=== PATIENT | male | born 1980 | race Caucasian/White ===

== ENCOUNTER → 2018-03-11 | Outpatient (CLI) | payer MEDICAID ==
--- NOTE | 2018-03-11 15:05 | RADIOLOGY REPORT (SQ) ---
EXAM DESCRIPTION: CHEST PA/LATERAL COMPLETED DATE/TIME: 03/11/2018 2:49 pm REASON FOR STUDY: PRE-OP COMPARISON: 07/26/2015 EXAM PARAMETERS: NUMBER OF VIEWS: two views TECHNIQUE: Digital Frontal and Lateral radiographic views of the chest acquired. RADIATION DOSE: NA LIMITATIONS: none FINDINGS: LUNGS AND PLEURA: No opacities, masses or pneumothorax. No pleural effusion. MEDIASTINUM AND HILAR STRUCTURES: No masses or contour abnormalities. HEART AND VASCULAR STRUCTURES: Heart normal size. No evidence for failure. BONES: No acute findings. HARDWARE: None in the chest. OTHER: No other significant finding. IMPRESSION: NO SIGNIFICANT RADIOGRAPHIC FINDING IN THE CHEST. TECHNICAL DOCUMENTATION: JOB ID: [id number] [employer]- All Rights Reserved Reading location - IP/workstation name: [email or web address]
[2018-03-11 15:29] LABS: APPEARANCE,URINE SLIGHTLY-CLOUDY; BILIRUBIN,URINE NEGATIVE (NEGATIVE); COLOR,URINE YELLOW; GLUCOSE, URINE NEGATIVE (NEGATIVE); KETONES,URINE NEGATIVE (NEGATIVE); LEUKOCYTE ESTERASE,URINE NEGATIVE (NEGATIVE); NITRITE,URINE NEGATIVE (NEGATIVE); PROTEIN,URINE NEGATIVE (NEGATIVE); URINE SPECIFIC GRAVITY 1.015; UROBILINOGEN,URINE NEGATIVE mg/dL (<2.0)
[2018-03-11 15:34] LABS: ABSOLUTE BASOPHILS # (AUTO) 0.1 10^3/uL (0.0-0.2); ABSOLUTE EOSINOPHILS # (AUTO) 0.5 10^3/uL (0.0-0.6); ABSOLUTE LYMPHOCYTES (AUTO) 3.1 10^3/uL (0.5-4.7); ABSOLUTE MONOCYTES (AUTO) 0.5 10^3/uL (0.1-1.4); ABSOLUTE NEUT (AUTO) 2.8 10^3/uL (1.7-8.2); BASOPHILS % (AUTO) 1.5 % (0-2); EOSINOPHILS % (AUTO) 6.6 % (0-6); HEMATOCRIT 45.7 % (37.9-51.0); HEMOGLOBIN 16.3 g/dL (13.5-17.0); LYMPHOCYTES % (AUTO) 44.5 % (13-45); MEAN CORPUSCULAR HEMOGLOBIN 32.9 pg (27.0-33.4); MEAN CORPUSCULAR HGB CONC 35.7 g/dL (32.0-36.0); MEAN CORPUSCULAR VOLUME 92 fl (80-97); MONOCYTES % (AUTO) 7.6 % (3-13); PLATELET COUNT 200 10^3/uL (150-450); RED BLOOD COUNT 4.96 10^6/uL (4.35-5.55); RED CELL DISTRIBUTION WIDTH 14.2 % (11.5-14.0); SEGMENTED NEUTROPHILS % (AUTO) 39.8 % (42-78); TOTAL CELLS COUNTED % (AUTO) 100 %
[2018-03-11 15:44] LABS: ANION GAP 12 (5-19); BLOOD UREA NITROGEN 15 mg/dL (7-20); CALCIUM 9.5 mg/dL (8.4-10.2); CARBON DIOXIDE 33 mmol/L (22-30); CHLORIDE 99 mmol/L (98-107); GLUCOSE 73 mg/dL (75-110); POTASSIUM 4.6 mmol/L (3.6-5.0); SODIUM 143.9 mmol/L (137-145)
--- NOTE | 2018-03-11 18:11 | EKG REPORT ---
SEVERITY:- NORMAL ECG - SINUS RHYTHM : Confirmed by: Raúl Wolf MD 11-Mar-2018 18:10:30
== END ==
LOC: OD 14:20
PROVIDERS: ATTEND Orthopaedic Surgery
DX: Z01.810 Encounter for preprocedural cardiovascular examination (principal); Z01.812 Encounter for preprocedural laboratory examination; Z01.818 Encounter for other preprocedural examination; Z79.899 Other long term (current) drug therapy
CPT/HCPCS: 36415; 71046; 80048; 81001; 85025; 93005; 93010

== ENCOUNTER 2018-03-30 06:32 | Inpatient (IN) | payer MEDICARE, MEDICAID ==
[~2018-03-30 06:32] MED LIST: BUPIVACAINE INJ/PF LIPOSOME/PF 266 MG/20 ML SDV IJ PRN; CEFAZOLIN INJ 1 GM VIAL IV PRN; IBUPROFEN 800 MG in DEXTROSE 5%-WATER 250 ML IV PRN; LACTATED RINGERS 1000 ML IV PRN; LANSOPRAZOLE 15 MG TAB.RAP.DR PO PRN; LIDOCAINE 0.5% INJ-PF (5 MG/ML) 50 ML SDV SUBCUT PRN; OXYCODONE HCL SR 10 MG TABLET PO PRN; VANCOMYCIN HCL 1,000 MG in DEXTROSE 5%-WATER 250 ML IV PRN
[2018-03-30] MEDS ORDERED: LANSOPRAZOLE 15 MG TAB.RAP.DR ONE (07:00)
[2018-03-30] MEDS ORDERED: FENTANYL CITRATE INJ/PF 100 MCG/2 ML AMPUL ONE (07:46)
[2018-03-30] MEDS ORDERED: TRANEXAMIC ACID INJ/PF 1,000 MG/10 ML SDV IV ONE ×3 (07:46→12:00)
[2018-03-30] MEDS ORDERED: MIDAZOLAM 2 MG/2 ML INJ ONE (07:46)
[2018-03-30] MEDS ORDERED: EPHEDRINE SULFATE INJ 50 MG/1 ML AMPULE ONE (07:46)
[2018-03-30] MEDS ORDERED: ONDANSETRON HCL INJ/PF 4 MG/2 ML SDV ONE (07:46)
[2018-03-30] MEDS ORDERED: PROPOFOL INJ 200 MG/20 ML VIAL IV ONE (07:47)
[2018-03-30] MEDS ORDERED: HYDROMORPHONE HCL INJ/PF 2 MG/ML AMPULE ONE (07:47)
[2018-03-30] MEDS ORDERED: OXYCODONE HCL SR 10 MG TABLET PO ONE (07:56)
[2018-03-30] MEDS ORDERED: CEFAZOLIN INJ 1 GM VIAL ONE (07:59)
[2018-03-30] MEDS ORDERED: BUPIVACAINE HCL/DEX-WATER/PF 15 MG/2 ML AMPULE ONE (08:03)
[2018-03-30] MEDS ORDERED: THROMBIN (BOVINE) 5000 UNIT EPITAXIS KIT ONE (08:48)
[2018-03-30] MEDS ORDERED: BUPIVACAINE HCL 0.25% /EPINEPHRINE INJ/PF 30 ML SDV ONE (08:48)
[2018-03-30] MEDS ORDERED: ONDANSETRON HCL INJ/PF 4 MG/2 ML SDV IV PRN ×2 (09:12→09:51)
[2018-03-30] MEDS ORDERED: FENTANYL CITRATE INJ/PF 100 MCG/2 ML AMPUL IV PRN ×3 (09:12)
[2018-03-30] MEDS ORDERED: DIPHENHYDRAMINE HCL 50 MG/ML VIAL IV PRN ×2 (09:12→09:51)
[2018-03-30] MEDS ORDERED: MEPERIDINE HCL/PF INJ 25 MG/1 ML DISP.SYRIN IV PRN (09:12)
[2018-03-30] MEDS ORDERED: MAG HYDROX/AL HYDROX/SIMETH SUSP 30 ML UDCUP PO PRN (09:51)
[2018-03-30] MEDS ORDERED: ONDANSETRON 4 MG TAB.RAPDIS PO PRN (09:51)
[2018-03-30] MEDS ORDERED: ACETAMINOPHEN 325 MG TABLET PO PRN (09:51)
[2018-03-30] MEDS ORDERED: MORPHINE SULFATE 10 MG/ML INJ IV PRN ×4 (09:51)
[2018-03-30] MEDS ORDERED: ZOLPIDEM TARTRATE 5 MG TABLET PO PRN (09:51)
[2018-03-30] MEDS ORDERED: RINGERS SOLUTION,LACTATED 1,000 ML IV PRN (09:51)
--- NOTE | 2018-03-30 09:51 | Operative Report ---
Operative Report DATE OF SURGERY: 03/30/18 PREOPERATIVE DIAGNOSIS: Left hip avascular necrosis OPERATION: Left hip arthroplasty SURGEON: RIDDHI WEN ANESTHESIA: Spinal TISSUE REMOVED OR ALTERED: Femoral head to pathology ESTIMATED BLOOD LOSS: 150 PROCEDURE: Implants used: Femur: Stratton Accolade 2 size 8 stem Acetabular shell: 60 mm hemispherical shell Liner: 36 mm flat cross-link polyethylene liner Head: 36 mm chrome cobalt head -5 neck The patient is placed in a right lateral decubitus position on the operating table. The left lower extremity and hindquarter is prepped and draped in a sterile fashion. A curvilinear incision was made over the greater trochanter a posterior approach the hip was taken. The femoral head is dislocated and the femoral neck transected using an oscillating saw. Attention was next turned to the acetabulum. Soft tissues cleared off the acetabulum using electrocautery. The acetabulum was then prepared using a series of hemispherical reamers until a 60 millimeters reamer is seated. Subsequently a 60 millimeters Jossy titanium hemispherical shell is impacted into position and secured with one screw. A standard flat 36 millimeters cross- link liner is impacted into the shell. Attention was next turned to the femur. Access is gained to the femoral canal using a box osteotome to the piriformis fossa. The femur is then prepared using a series of broaches until a number 8 broach is seated. A trial reduction was now performed using a 36 millimeters head with -5 neck. Preoperative leg length was recreated and is excellent anterior posterior stability. A decision was made to proceed with the above construct. All trial implants were removed. The wound is irrigated with pulsed lavage. A number 8 stem is impacted into the femoral canal. A trial reduction was again performed with a 36 mm head and a -5 neck. Findings as previously. The hip was dislocated one last time and the final chrome-cobalt head is impacted onto the trunnion. The hip was reduced. Wound is copiously irrigated with pulsed lavage. Sent closed in layers using interrupted Vicryl followed by suly. A sterile dressing is applied and the patient's returned to recovery room in satisfactory patient.
[2018-03-30] MEDS ORDERED: PRENATAL VITAMIN W DHA CAPSULE PO SCH (10:00)
--- NOTE | 2018-03-30 11:07 | RADIOLOGY REPORT (SQ) ---
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 NUMBER OF VIEWS: One view TECHNIQUE: Digital radiographic images of the pelvis post-procedure LIMITATIONS: None. FINDINGS: BONES: No worrisome or unexpected findings post-procedure. DEVICE: Left total hip replacement, acetabular component anchored with a single screw. Overlying ski n suly. SOFT TISSUES: No worrisome findings. Expected postoperative soft tissue changes. IMPRESSION: SATISFACTORY POSTOPERATIVE PELVIS. TECHNICAL DOCUMENTATION: JOB ID: [id number] [facility]- All Rights Reserved Reading location - IP/workstation name: [email or web address]
[2018-03-30] MEDS ORDERED: RINGERS SOLUTION,LACTATED 500 ML IV ONE ×2 (12:30→14:30)
[2018-03-30] MEDS: SENNOSIDES/DOCUSATE 8.6-50 MG 1 EACH TABLET PO SCH ×2 (12:42→17:58)
[2018-03-30] MEDS: PREGABALIN 75 MG CAPSULE PO SCH ×2 (12:42→17:58)
[2018-03-30] MEDS: OXYCODONE HCL SR 10 MG TABLET PO SCH ×2 (12:44→21:19)
[2018-03-30] MEDS: OXYCODONE HCL IR 5 MG TABLET PO PRN (17:58)
[2018-03-30] MEDS: IBUPROFEN 800 MG in DEXTROSE 5%-WATER 250 ML IV SCH (17:59)
[2018-03-30] MEDS ORDERED: VANCOMYCIN HCL 1,000 MG in DEXTROSE 5%-WATER 250 ML IV ONE (22:00)
[2018-03-31] MEDS: OXYCODONE HCL IR 5 MG TABLET PO PRN ×2 (00:02→09:24)
[2018-03-31] MEDS: IBUPROFEN 800 MG in DEXTROSE 5%-WATER 250 ML IV SCH (02:31)
[2018-03-31] MEDS ORDERED: LANSOPRAZOLE 30 MG TAB.RAP.DR PO SCH (06:00)
--- NOTE | 2018-03-31 07:12 | PDOC DISCHARGE SUMMARY ---
General - Admit/Disc Date/PCP Admission Date/Primary Care Provider: 03/30/18 06:32 Discharge Date: 03/31/18 - Discharge Diagnosis (1) Avascular necrosis of bone of left hip Is this a current diagnosis for this admission?: Yes - Additional Information Resuscitation Status: Full Code Home Medications: Buprenorphine HCl/Naloxone HCl [Suboxone 8 mg-2 mg Sl Film] 8 mg PO BID History of Present Illness History of Present Illness: DENNIS COLE is a 37 year old male Patient is a 37-year-old white male with left hip avascular necrosis who is status post a cord decompression in 2016 and now with progressive pain and functional disabilities of the leg is admitted for elective left hip arthroplasty. Hospital Course Hospital Course: Patient is admitted through the operating where he undergoes unconjugated left hip arthroplasty. Is returned to floor in satisfactory condition. He makes excellent progress with physical therapy ambulating and weightbearing as tolerated basis. Dressing remains clean dry and intact. Distal neurovascular examination is intact. Leg lengths are equal. Physical Exam Vital Signs: Temp Pulse Resp BP Pulse Ox 36.8 C 79 18 96/54 L 98 03/30/18 20:30 03/30/18 20:30 03/30/18 20:30 03/30/18 20:30 03/30/18 20:30 Intake & Output 03/30/18 03/31/18 04/01/18 06:59 06:59 06:59 Intake Total 5700 Output Total 2650 Balance 3050 General appearance: PRESENT: no acute distress Respiratory exam: PRESENT: unlabored Cardiovascular exam: PRESENT: RRR Pulses: PRESENT: +1 pedal pulses bilateral Vascular exam: PRESENT: normal capillary refill GI/Abdominal exam: PRESENT: soft Rectal exam: PRESENT: deferred Extremities exam: PRESENT: other - Left hip dressing clean dry and intact. Leg lengths are equal. Distal neurovascular examination is intact. Neurological exam: PRESENT: alert, awake, oriented to person, oriented to place , oriented to time, oriented to situation. ABSENT: motor sensory deficit Psychiatric exam: PRESENT: appropriate affect, normal mood. ABSENT: homicidal ideation, suicidal ideation Skin exam: PRESENT: dry, intact, warm. ABSENT: cyanosis, rash Results Laboratory Results: 03/30/18 07:31 Blood Type O POSITIVE Antibody Screen NEGATIVE Impressions: Pelvis X-Ray 03/30/18 09:52 IMPRESSION: SATISFACTORY POSTOPERATIVE PELVIS. Status: Imported from [facility] - * PATIENT BEING DISCHARGED WITH ANY OF THE FOLLOWING DIAGNOSIS: No VTE patient discharged on overlapping Therapy?: Yes Plan Discharge Plan: Patient be discharged home with home health services and DME. Follow-up with Dr. Banks and [facility] for surgery in 2 weeks for staple removal.
[2018-03-31 07:42] LABS: HEMATOCRIT 40.3 % (37.9-51.0); HEMOGLOBIN 13.8 g/dL (13.5-17.0); MEAN CORPUSCULAR HEMOGLOBIN 31.6 pg (27.0-33.4); MEAN CORPUSCULAR HGB CONC 34.2 g/dL (32.0-36.0); MEAN CORPUSCULAR VOLUME 93 fl (80-97); PLATELET COUNT 191 10^3/uL (150-450); RED BLOOD COUNT 4.36 10^6/uL (4.35-5.55); RED CELL DISTRIBUTION WIDTH 13.6 % (11.5-14.0)
[2018-03-31 07:56] LABS: ANION GAP 10 (5-19); BLOOD UREA NITROGEN 13 mg/dL (7-20); CALCIUM 8.8 mg/dL (8.4-10.2); CARBON DIOXIDE 29 mmol/L (22-30); CHLORIDE 102 mmol/L (98-107); GLUCOSE 95 mg/dL (75-110); POTASSIUM 4.6 mmol/L (3.6-5.0); SODIUM 140.7 mmol/L (137-145)
[2018-03-31 09:39] VITALS: BP 96/54
[2018-03-31] MEDS ORDERED: ASPIRIN 81 MG TABLET, ENT COATED PO SCH (10:00)
--- NOTE | 2018-03-31 10:13 | CONSULTATION REPORT E ---
Consultation Report NAME: DENNIS COLE : 1980 AGE: 37Y DATE: 03/30/2018 430 A TO: RONAN GONZALEZ PA-C FROM: Requesting Physician CHIEF COMPLAINT: Left hip pain status post left hip arthroplasty today due to avascular necrosis. HISTORY OF PRESENT ILLNESS: The patient is a 37-year-old male with past medical history of GERD, multiple joint surgeries, anxiety, depression, opioid dependence/abuse, who underwent a scheduled left hip arthroplasty earlier today due to avascular necrosis. He is actually doing very well. He is able to participate in physical therapy and walked 250 feet up and down the hallway earlier today. He states his current postoperative pain medications are effective and he denies side effects. He does have a history of opioid dependence/abuse, specifically Opana. He states he was prescribed pain medications for a number of years after having multiple orthopedic surgeries on his knees, hips, and shoulders, and developed a dependence. He began buying them off the street and misusing them. He has been stable on Suboxone therapy for about [address] Lenny Martinez, who was aware the patient was having surgery and recommended that he stop Suboxone prior to his surgery, which he did, and will resume it when he is able to stop his postop pain medications. He is currently receiving OxyContin q.12 hours scheduled and morphine IV as needed, which is helpful. He is hopeful that he can go home soon and denies further concerns at this time. MEDICAL HISTORY: 1. Gastroesophageal reflux disease. 2. Anxiety/depression. 3. Opioid dependence. PAST SURGICAL HISTORY: 1. Three knee surgeries in 2004, 2005, and 2011. 2. Shoulder surgery in 2014. 3. Left hip surgery in 2013. ALLERGIES: No known drug allergies. MEDICATIONS: As per chart. Only home medication is Suboxone, which he takes 8 mg twice a day. SOCIAL HISTORY: He denies alcohol use. No illicit drug use. He has a fiancee. He states he will be staying with his parents upon his discharge. REVIEW OF SYSTEMS: CONSTITUTIONAL: He denies fevers or chills. Loss of appetite. SKIN: Denies rashes, bruising, itching, diaphoresis. HEENT: Denies difficulty hearing. CVS: Denies chest pain or heart palpitations. RESPIRATORY: Denies cough, sputum production. GASTROINTESTINAL: Denies nausea, vomiting, diarrhea, abdominal pain, or constipation. URINARY: Denies dysuria or hematuria. MUSCULOSKELETAL: Positive for left hip pain, worse with movement. NEUROLOGIC: Denies weakness, bowel or bladder incontinence. No seizures, tremors, or loss of consciousness. ENDOCRINE: Denies any recent weight changes. Review of systems otherwise negative. PHYSICAL EXAMINATION: GENERAL: The patient is a well-developed, well-nourished 37-year-old male who appears his stated age and is awake, alert, and oriented to person, place, and time. He does not appear to be in acute distress. When I arrived, he is sitting upright in his bed. He has some pain and grimacing with movement. His father, mother, and fiancee are present in the room. VITAL SIGNS: Stable. SKIN: Warm and dry, no rashes. HEENT: Normocephalic/atraumatic. Extraocular muscles are intact. NECK: Supple, nontender. CVS: Radial pulses 2+ bilaterally. No edema. LUNGS: Respirations unlabored. ABDOMEN: Soft, nontender, nondistended. EXTREMITIES: Able to move all extremities. NEUROLOGIC: able to pump feet, no clonus. MUSCULOSKELETAL: He does have a bandage in place over the left hip. PSYCH: The patient is alert and oriented to person, place, and time. IMPRESSION AND PLAN: Postop pain, status post left hip arthroplasty, due to avascular necrosis. The patient is actually doing well since he had surgery earlier today. His current medication regimen of OxyContin 20 q.12 and morphine IV as needed is effective. He has not yet tried the Oxycodone IR for breakthrough pain. Recommend he try this overnight so hopefully he can be discharged home on oral medications. Discussed that it is ok to use the IV pain meds overnight as needed, as we do want him to rest, but tomorrow we would start transitioning away from them as much as possible to oral meds only. Discussed risks of opioids, given his history of opioid dependence and Suboxone use. Our goal would be to use opioids for as short a time as possible. Continue physical therapy and continue followup with Orthopedics. No other recommendations at this time. Patient discussed with Dr. Vernon Ledesma. DICTATING PHYSICIAN: RONAN GONZALEZ PA-C [id number] PHY#: [id number] ID: [id number] JOB#: [id number] ACCT: [id number] cc:RONAN GONZALEZ PA-C
== END 2018-03-31 11:30 | disposition home health service (06) | DRG 470 ==
LOC: INOR 06:32 → 4S 12:17
PROVIDERS: ADMIT Orthopaedic Surgery; ATTEND Orthopaedic Surgery
PROC: 0SRB02A Replacement of Left Hip Joint with Metal on Polyethylene Synthetic Substitute, Uncemented, Open Approach (ICD-10-PCS; principal; 2018-03-30 08:45)
DX: M87.052 Idiopathic aseptic necrosis of left femur (principal); F11.20 Opioid dependence, uncomplicated; K21.9 Gastro-esophageal reflux disease without esophagitis; F41.9 Anxiety disorder, unspecified; F32.9 Major depressive disorder, single episode, unspecified; F17.210 Nicotine dependence, cigarettes, uncomplicated; M54.5 Low back pain; Z79.899 Other long term (current) drug therapy
CPT/HCPCS: 01214; 36415; 72170; 80048; 85027; 86850; 86900; 86901; 88304; 88311; 94799; C1776; G8978-GP; G8979-GP; G8987-GO; G8988-GO; J0690; J1170; J1741; J2250; J2270; J2405; J2704; J3010; J3370; J3490; J7060